=== PATIENT | male | born 1980 | race Two or more races ===

== ENCOUNTER 2020-06-10 07:12 | Emergency (ER) | payer BC, OTHER ==
[~2020-06-10] VITALS: Ht 172.7 cm; Wt 117.9 kg
[2020-06-10 07:34] VITALS: BP 167/102
[2020-06-10] MEDS ORDERED: IBUPROFEN 800 MG TAB PO ONE (08:45)
[2020-06-10] MEDS ORDERED: TETANUS-DIPTH-ACEL PERTUSSIS 0.5ML SYR Tdap IM ONE (08:45)
== END 2020-06-10 09:09 | disposition home or self-care (01) ==
LOC: ER 07:12
DX: S61.451A Open bite of right hand, initial encounter (principal); S61.431A Puncture wound without foreign body of right hand, initial encounter; W54.0XXA Bitten by dog, initial encounter; Y93.89 Activity, other specified; Y92.89 Other specified places as the place of occurrence of the external cause; Y99.8 Other external cause status
CPT/HCPCS: 73130; 90471; 90715

== ENCOUNTER 2024-01-18 08:23 | Emergency (ER) | payer SELFPAY ==
[~2024-01-18] VITALS: Ht 152.4 cm; Wt 107.1 kg
[2024-01-18] MEDS: KETOROLAC TROMETH 60MG/2ML VIAL IM ONE (09:20)
[2024-01-18 09:25] VITALS: BP 142/94; PULSE 100; RESP 24; TEMP 98; O2SAT 96
[2024-01-18] MEDS ORDERED: CEPH500C PO (09:50)
[2024-01-18] MEDS ORDERED: NAPR-746 PO (09:50)
== END 2024-01-18 09:58 | disposition home or self-care (01) ==
LOC: ER 08:23
DX: S30.0XXA Contusion of lower back and pelvis, initial encounter (principal); E11.9 Type 2 diabetes mellitus without complications; I10 Essential (primary) hypertension; Z79.1 Long term (current) use of non-steroidal anti-inflammatories (NSAID); W18.39XA Other fall on same level, initial encounter; Y93.89 Activity, other specified; Y92.89 Other specified places as the place of occurrence of the external cause; Y99.8 Other external cause status
CPT/HCPCS: 72100; 96372; 99283; J1885